=== PATIENT | male | born 1970 | race Hispanic/Latino ===

== ENCOUNTER 2022-06-21 14:41 | Emergency (ER) | payer OTHER ==
[~2022-06-21] VITALS: Ht 162.6 cm; Wt 72.6 kg
[2022-06-21] MEDS ORDERED: HYDROCODON-ACE1 EA11 PO (15:56)
== END 2022-06-21 16:24 | disposition home or self-care (01) ==
LOC: ED 14:41
DX: S82.832A Other fracture of upper and lower end of left fibula, initial encounter for closed fracture (principal); S60.211A Contusion of right wrist, initial encounter; S64.91XA Injury of unspecified nerve at wrist and hand level of right arm, initial encounter; W18.31XA Fall on same level due to stepping on an object, initial encounter
CPT/HCPCS: 73110; 73610; 99283-25

== ENCOUNTER 2023-02-01 07:15 | Day surgery (SDC) | payer OTHER ==
[~2023-02-01] VITALS: Ht 162.6 cm; Wt 72.7 kg
[~2023-02-01 07:15] MED LIST: HYDROCODON-ACE1 EA11 PO
[2023-02-01] MEDS ORDERED: HYDROCODON-ACE1 EA11 PO (09:30)
--- NOTE | 2023-02-01 09:32 | NUR ---
02/01/23 0932 Leisa Thakur 0954 PATIENT ARRIVES TO PACU AWAKE. DENIES PAIN OR NAUSEA. RESP EVEN AND UNLABORED, ROOM AIR SATS >97%. DRINKING WATER.
--- NOTE | 2023-02-01 17:22 | OR ---
[facility] [address], [place] [address] Signed DATE OF OPERATION: 02/01/2023 SURGEON: Nayana Youngblood MD PREOPERATIVE DIAGNOSIS: Carpal tunnel syndrome, right. POSTOPERATIVE DIAGNOSIS: Carpal tunnel syndrome, right. PROCEDURE PERFORMED: Carpal tunnel release, right. [employer] SALES: None. ANESTHESIA: Saeed block. TOURNIQUET TIME: 12 minutes. BRIEF HISTORY: Ailin is a 52-year-old gentleman with pain and numbness in his hand. Risks and benefits of operative treatment discussed with him. He elected to proceed. DESCRIPTION OF PROCEDURE: Once consent was obtained, he was taken to the operating room. After adequate anesthesia, he was left on the day surgery bed with a hand table. The arm was prepped and draped in a standard sterile fashion. A 1.5 cm incision was made in the distal wrist crease carried through skin and subcutaneous tissue. The palmaris longus was quite robust and was retracted and protected. The transverse carpal ligament was identified under loupe magnification. It was then dissected free of overlying soft tissue distally and proximally. It was then released about a centimeter proximally and distally to the distal extent. This was done under direct visualization with the loupes. The tunnel was then palpated and ensured completely released. The wound was copiously irrigated with normal saline, closed with 3-0 nylon and injected with 8 mL of 0.25% Marcaine plain. Wound was dressed with bacitracin, Adaptic, 4x8's, and gauze. He tolerated the procedure well. All sponge, needle, and instrument counts were correct. Electronically Signed By: NAYANA YOUNGBLOOD MD 02/01/23 1722 PATIENT NAME: AILIN JOHNSON OPERATIVE REPORT DATE OF : 68 REPORT #: [id number] PHYSICIAN: NAYANA YOUNGBLOOD MD PCP: NO PRIMARY CARE PHYSICIAN REPORT IS CONFIDENTIAL AND NOT TO BE RELEASED WITHOUT AUTHORIZATION [address] [address] Signed Nayana Youngblood MD /MODL /[id number] Copies: ~ Electronically Signed By: NAYANA YOUNGBLOOD MD 02/01/23 1722 PATIENT NAME: AILIN JOHNSON OPERATIVE REPORT DATE OF : 68 REPORT #: [id number] PHYSICIAN: NAYANA YOUNGBLOOD MD PCP: NO PRIMARY CARE PHYSICIAN REPORT IS CONFIDENTIAL AND NOT TO BE RELEASED WITHOUT AUTHORIZATION
== END 2023-02-01 10:05 | disposition home or self-care (01) ==
LOC: DS 07:15
PROVIDERS: ATTEND Specialist
PROC: 01N50ZZ Release Median Nerve, Open Approach (ICD-10-PCS; principal; 2023-02-01 10:00)
DX: G56.01 Carpal tunnel syndrome, right upper limb (principal)
CPT/HCPCS: J0690; J2704; J7121

== ENCOUNTER 2023-07-06 16:21 | Emergency (ER) | payer OTHER ==
[~2023-07-06] VITALS: Ht 162.6 cm; Wt 72.6 kg
[2023-07-06 17:21] LABS: HEMOGLOBIN 16.1 g/dL (12.0-18.0); MCV 93.4 fl (81-99); RDW 13.4 (10.5-15.0)
[2023-07-06 17:24] LABS: BASOPHILS 0.7 % (0-2); EOSINOPHILS 0.3 % (0-6); HEMATOCRIT 45.4 % (35.0-50.0); LYMPHOCYTES 20.7 % (24-44); MCH 33.1 (27-36); MCHC 35.4 g/dl (30-36); MONOCYTES 6.3 % (0-12); PLATELET COUNT 209 K/uL (140-440); RBC 4.86 M/ul (4.3-5.7)
[2023-07-06 17:29] LABS: ALBUMIN 4.5 g/dL (3.4-5.0); ALBUMIN/GLOBULIN RATIO 1.29 (1.1-2.4); ANION GAP 13.9 (7-21); BILIRUBIN, TOTAL 0.8 ng/dL (0.2-1.0); BUN/CREATININE RATIO 19.51 (6.0-28.6); CALCIUM 9.2 mg/dL (8.5-10.1); CREATININE, SERUM 0.82 mg/dL (0.70-1.30); POTASSIUM 3.9 mmol/L (3.5-5.1)
[2023-07-06] MEDS ORDERED: HYDROCODON-ACE1 EA11 PO (19:13)
[2023-07-06 20:07] VITALS: BP 131/89
== END 2023-07-06 20:08 | disposition home or self-care (01) ==
LOC: ED 16:21
PROVIDERS: Emergency Medicine
DX: S22.42XA Multiple fractures of ribs, left side, initial encounter for closed fracture (principal); W55.22XA Struck by cow, initial encounter
CPT/HCPCS: 36415; 71045; 74177; 80053; 85025; 96375; 96376; 99284-25; A9270; J1170; J1885; J7121

== ENCOUNTER 2024-07-15 16:42 | Emergency (ER) | payer OTHER ==
[~2024-07-15] VITALS: Ht 162.6 cm; Wt 68.7 kg
[2024-07-15] MEDS ORDERED: NAPROSYN500 MG PO (17:36)
[2024-07-15] MEDS ORDERED: KETOROLAC TROMETHAMINE 15 MG/ML VIAL IM ONE (17:45)
[2024-07-15] MEDS ORDERED: HYDROCODON-ACE1 EA11 PO (18:12)
[2024-07-15 18:35] VITALS: BP 115/78
== END 2024-07-15 18:30 | disposition home or self-care (01) ==
LOC: ED 16:42
DX: S43.401A Unspecified sprain of right shoulder joint, initial encounter (principal); S22.41XA Multiple fractures of ribs, right side, initial encounter for closed fracture; S27.0XXA Traumatic pneumothorax, initial encounter; W11.XXXA Fall on and from ladder, initial encounter
CPT/HCPCS: 71045; 73030; 96372; 99283-25; J1885

== ENCOUNTER 2024-07-16 10:31 | Emergency (ER) | payer OTHER ==
[~2024-07-16] VITALS: Ht 162.6 cm; Wt 70.9 kg
[~2024-07-16 10:31] MED LIST changes: +NAPROSYN500 MG PO
--- OUTSIDE RECORDS SUMMARY | 2024-07-16 10:38 | XMS ---
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 [facility] has no Care Guidelines for this patient. [facility] V[facility] (12 MO.) [facility] T[facility] NOTE: Visits indicate total known visits. ED/[facility] VISIT TRACKING (12 MO.) 07/16/2024 10:[address] [facility] TYPE: Emergency COMPLAINT: - SHOULDER PAIN 07/15/2024 16:43 [facility] OR TYPE: Emergency COMPLAINT: - RT SHOULDER INJURY INPATIENT VISIT TRACKING (12 MO.) No inpatient visits to display in this time frame [email or web address]
[2024-07-16 12:38] VITALS: BP 128/69
== END 2024-07-16 12:40 | disposition home or self-care (01) ==
LOC: ED 10:31
DX: S22.41XD Multiple fractures of ribs, right side, subsequent encounter for fracture with routine healing (principal); X58.XXXD Exposure to other specified factors, subsequent encounter; Z79.899 Other long term (current) drug therapy
CPT/HCPCS: 71045; 99283-25